=== PATIENT | female | born 1970 | race Caucasian/White ===

== ENCOUNTER 2016-05-26 10:43 | Day surgery (SDC) | payer MEDICAID ==
[~2016-05-26] VITALS: Ht 170.2 cm; Wt 128.2 kg
[2016-05-26] MEDS ORDERED: FLUTICASONE PRO16 GM NASAL (11:29)
[2016-05-26] MEDS ORDERED: ZOCOR20 MG PO (11:29)
[2016-05-26] MEDS ORDERED: NORCO 7.5/325 T1 TA1 PO (11:30)
[2016-05-26] MEDS ORDERED: OMEPRAZOLE40 MG PO (11:31)
[2016-05-26] MEDS ORDERED: LITHIUM CARBON300 MG PO (11:31)
[2016-05-26] MEDS ORDERED: NEURONTIN 300300 MG PO (11:31)
[2016-05-26] MEDS ORDERED: GLUCOPHAGE500 MG PO (11:32)
[2016-05-26] MEDS ORDERED: ZOFRAN ODT4 MG/UDTAB PO (11:32)
[2016-05-26] MEDS ORDERED: DETROL LA4 MG PO (11:33)
[2016-05-26] MEDS ORDERED: ARISTOCORT 0.5%15 GM TOPICAL (11:33)
[2016-05-26 11:49] VITALS: Ht 170.2 cm; Wt 128.2 kg
[2016-05-26 12:22] LABS: BASOPHILS 0.1 % (0.0-2.0); EOSINOPHILS 3.4 % (0-7); HEMATOCRIT 35.9 % (36.0-48.0); HEMOGLOBIN 11.3 g/dL (12-16); IMMATURE GRANULOCYTES 0.1 % (0-5); LYMPHOCYTES 23.8 % (15-50); MCH 26.3 pg (26.0-34.0); MCHC 31.5 g/dL (31.0-37.0); MCV 83.5 fL (80.0-100.0); MEAN PLATELET VOLUME 9.2 fL (7.4-10.4); MONOCYTES 4.3 % (2-11); NEUTROPHILS 68.3 % (40-80); PLATELET COUNT 332 10x3/uL (130-400); RDW 14.8 % (11.5-14.5); WBC 7.9 10x3/uL (4.8-10.8)
[2016-05-26 12:45] LABS: ANION GAP 13.9 mmol/L (8-16); CALCIUM 8.8 mg/dL (8.5-10.1); CARBON DIOXIDE 24.8 mmol/L (21.0-32.0); CREATININE - SERUM 0.9 mg/dL (0.6-1.3); POTASSIUM - SERUM 3.7 mmol/L (3.5-5.1)
--- NOTE | 2016-06-01 10:15 | OP ---
PATIENT NAME: LILIAN MAGANA MEDICAL RECORD: [id number] :70 LOCATION:[facility] ADMISSION DATE: SURGEON: LIZZ CACERES DO DATE OF OPERATION: 05/26/2016 PROCEDURE: EGD with biopsies. SCOPE: Olympus video gastroscope. MEDICATIONS: Propofol 250 mg IV per anesthesia. INDICATIONS FOR PROCEDURE: Gastroesophageal reflux disease and epigastric abdominal pain. FINDINGS: Informed consent was given. The patient was made comfortable with the above medications. After reaching an adequate level of sedation by slow IV push, the patient was placed on her left side. The scope was then advanced under direct visualization through the mouth down to the level of the second portion of the duodenum. The upper, middle, and distal thirds of the esophagus appeared normal. At the GE junction, there was some mild reflux-induced grade C esophagitis. Scope was advanced down in the stomach and retroflexed to view the cardia. There was no hiatal hernia present. There were some benign fundic gland polyps present in the fundus and body of the stomach related to past PPI use. Scope was advanced down into the antrum and prepyloric region. There was some patchy yet diffuse chronic gastritis characterized by granulation and erythema. Random biopsies were taken from the antrum, incisura and body of the stomach and sent for histology and to rule out H. pylori. Scope was advanced down into the duodenum where the bulb and second portion of the duodenum appeared normal. Random biopsies were taken and submitted for histology. The scope was then withdrawn from the patient. The patient tolerated the procedure well and there were no complications. ESTIMATED BLOOD LOSS: Less than 5 cc. IMPRESSION: 1. Mild reflux-induced esophagitis -- grade C. 2. Chronic gastritis, biopsied. 3. Benign fundic gland polyps. 4. Normal duodenum, biopsied. PLAN AND RECOMMENDATIONS: 1. Discharge home when recovery parameters are met. 2. Continue current diet and continue reflux precautions. 3. Change medications to omeprazole 40 mg daily in the a.m. and ranitidine 150 mg p.o. q.h.s. A script will be given for this. 4. Follow up in GI clinic as needed. TRANSINT:[id number] Voice Confirmation ID: [id number] DOCUMENT ID: [id number] OPERATIVE REPORT [id number] LILIAN MAGANA LIZZ CACERES DO at 1015 CC: [id number] DICTATION DATE: 05/26/16 1338 WELDING MACHINE TENDER: 05/26/16 2118 [facility] 05/26/16 [place] [id number] [place] [address]
== END 2016-05-26 15:15 | disposition home or self-care (01) ==
LOC: D.OPS 10:43
PROVIDERS: Anesthesiology
DX: K21.0 Gastro-esophageal reflux disease with esophagitis (principal); K29.50 Unspecified chronic gastritis without bleeding; K31.7 Polyp of stomach and duodenum

== ENCOUNTER 2016-07-29 11:38 | Day surgery (SDC) | payer MEDICAID ==
[~2016-07-29] VITALS: Ht 170.2 cm; Wt 128.6 kg
[~2016-07-29 11:38] MED LIST: ARISTOCORT 0.5%15 GM TOPICAL; DETROL LA4 MG PO; FLUTICASONE PRO16 GM NASAL; GLUCOPHAGE500 MG PO; LITHIUM CARBON300 MG PO; NEURONTIN 300300 MG PO; NORCO 7.5/325 T1 TA1 PO; OMEPRAZOLE40 MG PO; ZOCOR20 MG PO; ZOFRAN ODT4 MG/UDTAB PO
[2016-07-29 12:26] LABS: HEMATOCRIT 36.8 % (36.0-48.0); HEMOGLOBIN 11.7 g/dL (12-16); MCH 26.4 pg (26.0-34.0); MCHC 31.8 g/dL (31.0-37.0); MCV 83.1 fL (80.0-100.0); MEAN PLATELET VOLUME 9.4 fL (7.4-10.4); RBC 4.43 10x6/uL (4.00-5.40); WBC 10.1 10x3/uL (4.8-10.8)
[2016-07-29 12:52] LABS: ANION GAP 14.3 mmol/L (8-16); CALCIUM 9.4 mg/dL (8.5-10.1); CARBON DIOXIDE 23.1 mmol/L (21.0-32.0); CREATININE - SERUM 1.1 mg/dL (0.6-1.3); POTASSIUM - SERUM 3.4 mmol/L (3.5-5.1)
[2016-07-29 13:24] VITALS: BP 103/73; Ht 170.2 cm; Wt 128.6 kg
--- NOTE | 2016-07-29 14:56 | NUR ---
1440- PT SITTING UP WITH HOB ELEVATED, FULL LIQUIDS OFFERED. VSS. FAMILY AT BEDSIDE. DR CACERES HAS GONE OVER PROCEDURAL FINDINGS WITH PT AND FAMILY. 1455- FULL LIQUIDS TOLERATED. WILL MONITOR.
--- NOTE | 2016-07-29 15:46 | NUR ---
1515-IV D/C'D, PT TOLERATED. CATHETER INTACT. 1525- DISCHARGE INSTRUCTIONS COMPLETED, PT VERBALIZED UNDERSTANDING. PAPERWORK SIGNED. 1530- PT DISCHARGED VIA WHEELCHAIR WITH FAMILY.
--- NOTE | 2016-08-04 19:32 | OP ---
PATIENT NAME: LILIAN MAGANA MEDICAL RECORD: [id number] :70 [facility]ATION:[facility] ADMISSION DATE: SURGEON: LIZZ CACERES DO DATE OF OPERATION: 07/29/2016 PROCEDURE: Colonoscopy. INDICATIONS: History of colon polyps and family history of colon cancer. SCOPE: [employer] video pediatric colonoscope. MEDICATIONS: Propofol 700 mg IV per anesthesia. WITHDRAWAL TIME: 8 minutes. ESTIMATED BLOOD LOSS: None. COMPLICATIONS: None. FINDINGS: Informed consent was given. The patient was made comfortable with the above medication. After reaching an adequate level of sedation by slow IV push, the patient was placed on her left side. A digital rectal examination was performed and revealed external hemorrhoids. The endoscope was then advanced under direct visualization through the anus to the cecum and into the terminal ileum. The scope was then slowly withdrawn. The mucosa was carefully examined. There were no polyps, ulcers, erosions, or other abnormalities within the mucosa of the entire colon. Retroflexion was performed in the rectum. There was evidence of small nonbleeding internal hemorrhoids. The scope was then brought back in a neutral position and withdrawn from the patient. The patient tolerated the procedure well and there were no complications. IMPRESSION: Internal and external hemorrhoids, which were not bleeding. PLAN AND RECOMMENDATIONS: 1. Discharge home when recovery parameters are met. 2. Continue current diet. 3. Continue current medications. 4. Follow up in the GI clinic as needed. 5. Recall colonoscopy in 5 years based on a history of colon polyps and a family history of colon cancer. TRANSINT:[id number] Voice Confirmation ID: [id number] DOCUMENT ID: [id number] LIZZ CACERES DO at 1932 CC: [id number] DICTATION DATE: 07/29/16 1431 PHOTOGRAPHIC ARTIST: 07/29/16 2209 [facility] 07/29/16 [place] [id number]
== END 2016-07-29 15:30 | disposition home or self-care (01) ==
LOC: D.OPS 11:38
PROVIDERS: Anesthesiology
DX: Z86.010 Personal history of colon polyps (principal); Z80.0 Family history of malignant neoplasm of digestive organs; G47.30 Sleep apnea, unspecified; E11.9 Type 2 diabetes mellitus without complications; K21.9 Gastro-esophageal reflux disease without esophagitis; K76.0 Fatty (change of) liver, not elsewhere classified; K64.4 Residual hemorrhoidal skin tags; K64.8 Other hemorrhoids; Z01.812 Encounter for preprocedural laboratory examination